=== PATIENT | male | born 1965 | race Caucasian/White ===

== ENCOUNTER 2017-01-20 13:50 | Inpatient (IN) | payer OTHER ==
[2017-01-20] VITALS (7 sets, daily range): BP systolic 132–137; BP diastolic 63–65; PULSE 85–108; RESP 21–35; TEMP 98.4–99.9; O2SAT 92–100
[~2017-01-20 13:50] MED LIST: ALPR0.5T3 PO; AMLO5TAB2 PO; BENA20TA PO; BUSP15TA PO; HYDR-3533 PO; OMEP20TA PO
[2017-01-20] MEDS ORDERED: IOHEXOL 350 MG/ML 10 ML VIAL (for RAD DIAG) IVCONTRAST ONE (13:51)
[2017-01-20] MEDS ORDERED: DIPHTH/TETANUS/ACEL PERTUSSIS (BOOSTER) 0.5 ML VIAL/PFS IM ONE (13:56)
[2017-01-20] MEDS ORDERED: MORPHINE SULFATE 8 MG/ML INJ ONE (14:02)
[2017-01-20 14:10] LABS: AUTOMATED NEUTROPHIL # 7.3 TH/MM3 (1.8-7.7); BASOPHIL % 0.3 % (0.0-2.0); EOSINOPHIL % 0.2 % (0.0-4.0); HEMATOCRIT 30.8 % (39.0-51.0); HEMO FLAGS DIFF FINAL; LYMPH % 29.3 % (9.0-44.0); LYMPHOCYTE # 3.4 TH/MM3 (1.0-4.8); MEAN CELL VOLUME 97.9 FL (80.0-100.0); MEAN CORPUSCULAR HEMOGLOBIN 31.3 PG (27.0-34.0); MONO % 6.9 % (0.0-8.0); NEUT % 63.3 % (16.0-70.0); PLATELET COUNT 332 TH/MM3 (150-450); RED BLOOD COUNT 3.14 MIL/MM3 (4.50-5.90); RED CELL DISTRIBUTION WIDTH 14.7 % (11.6-17.2); WHITE BLOOD COUNT 11.6 TH/MM3 (4.0-11.0)
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
[2017-01-20 14:18] LABS: APTT (PATIENT) 21.9 SEC (24.3-30.1); PROTHROMBIN TIME - PATIENT 11.2 SEC (9.8-11.6)
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
[2017-01-20 14:22] LABS: I-STAT POTASSIUM 3.9 MMOL/L (3.5-4.9)
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
[2017-01-20] MEDS ORDERED: NALOXONE HCL 0.4 MG/ML AMP IV PRN (15:00)
[2017-01-20] MEDS ORDERED: SODIUM CHLORIDE 0.9% FLUSH 10 ML FLUSH IV FLUSH PRN ×2 (15:00→17:15)
[2017-01-20] MEDS ORDERED: PANTOPRAZOLE SOD 40 MG DELAYED RELEASE TAB PO SCH (15:00)
[2017-01-20] MEDS ORDERED: MORPHINE SULFATE 4 MG/ML INJ IV PRN (15:00)
[2017-01-20] MEDS ORDERED: ONDANSETRON HCL 4 MG/2 ML VIAL IV PRN (15:00)
[2017-01-20] MEDS ORDERED: Post-op Orders (for Pharmacy) MISC XX ONE (15:00)
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
[2017-01-20] MEDS ORDERED: LORazepam 2 MG TAB PO PRN (17:15)
[2017-01-20] MEDS ORDERED: FLUMAZENIL 0.5 MG/5 ML VIAL IV PUSH PRN (17:15)
[2017-01-20] MEDS ORDERED: LORazepam 1 MG TAB PO PRN (17:15)
[2017-01-20] MEDS ORDERED: LORazepam 2 MG/ML VIAL IV PUSH PRN ×4 (17:15)
[2017-01-20] MEDS ORDERED: ALPRTAB4 (17:24)
[2017-01-20] MEDS ORDERED: BUSP1TAB PO (17:24)
[2017-01-20] MEDS ORDERED: LATA0.002 EACH EYE (17:24)
[2017-01-20] MEDS ORDERED: AMLO5 PO (17:24)
[2017-01-20] MEDS ORDERED: OMEP20TA PO (17:24)
[2017-01-20] MEDS ORDERED: HYDR-3533 PO (17:24)
[2017-01-20] MEDS ORDERED: LOTE20TA PO (17:24)
[2017-01-20] MEDS: NICOTINE 21 MG/24 HR PATCH T-DERMAL SCH (17:29)
[2017-01-20] MEDS ORDERED: RESP: ALBUTEROL 2.5 MG/3 ML NEB (PRN) NEB (17:30)
[2017-01-20] MEDS: INSULIN ASPART SUPPLEMENTAL SCALE SQ SCH ×2 (17:30→22:40)
[2017-01-20] MEDS ORDERED: GLUCAGON 1 MG/ML VIAL OTHER PRN (17:30)
[2017-01-20] MEDS ORDERED: DEXTROSE 50% IN WATER 50 ML VIAL(D50) IV PRN (17:30)
[2017-01-20] MEDS ORDERED: [UNRECOGNIZED DRUG - OTHER] IV SCH (18:00)
[2017-01-20] MEDS ORDERED: MULTIVITAMIN IV SCH (18:00)
[2017-01-20] MEDS ORDERED: THIAMINE IV SCH (18:00)
[2017-01-20] MEDS ORDERED: FOLIC ACID IV SCH (18:00)
--- NOTE | 2017-01-20 18:21 | EKG ---
Date Performed: 01/20/2017 Time Performed: 16:36:44 PTAGE: 89 years EKG: Sinus tachycardia. Normal ECG except for rate NO PREVIOUS TRACING DOCTOR: Sabas Church Interpretating Date/Time 01/20/2017 18:20:15
[2017-01-20] MEDS: RESP: ALBUTEROL 2.5 MG/IPRATROPIUM 0.5 MG NEB (SCH) NEB (19:43)
[2017-01-20 19:44] LABS: HEMATOCRIT 26.5 % (39.0-51.0); REVIEW FLAG FINAL
[2017-01-20] MEDS: SODIUM CHLORIDE 0.9% FLUSH 10 ML FLUSH IV FLUSH SCH (20:20)
[2017-01-20] MEDS: oxyCODONE/ACETAMINOPHEN 10 MG/325 MG TAB PO PRN (20:20)
[2017-01-20] MEDS ORDERED: SODIUM CHLORIDE 0.9% FLUSH 10 ML FLUSH IV FLUSH SCH (21:00)
[2017-01-21] VITALS (11 sets, daily range): BP systolic 105–136; BP diastolic 58–98; PULSE 88–102; RESP 12–21; TEMP 97.7–98.8; O2SAT 94–100
[2017-01-21] MEDS: SODIUM CHLOR 0.9% 1000 ML INJ 1,000 ML IV SCH ×2 (02:16→17:38)
[2017-01-21] MEDS: oxyCODONE/ACETAMINOPHEN 10 MG/325 MG TAB PO PRN ×4 (03:11→21:05)
[2017-01-21] MEDS: RESP: ALBUTEROL 2.5 MG/IPRATROPIUM 0.5 MG NEB (SCH) NEB ×3 (03:24→16:00)
[2017-01-21] MEDS: INSULIN ASPART SUPPLEMENTAL SCALE SQ SCH ×4 (05:30→23:12)
[2017-01-21 06:17] LABS: AUTOMATED NEUTROPHIL # 5.8 TH/MM3 (1.8-7.7); BASOPHIL % 0.4 % (0.0-2.0); EOSINOPHIL % 0.1 % (0.0-4.0); HEMO FLAGS DIFF FINAL; LYMPH % 17.6 % (9.0-44.0); LYMPHOCYTE # 1.4 TH/MM3 (1.0-4.8); MEAN CELL VOLUME 96.2 FL (80.0-100.0); MEAN CORPUSCULAR HEMOGLOBIN 32.9 PG (27.0-34.0); MEAN CORPUSCULAR HGB CONC 34.2 % (32.0-36.0); MONO % 6.8 % (0.0-8.0); NEUT % 75.1 % (16.0-70.0); PLATELET COUNT 208 TH/MM3 (150-450); RED CELL DISTRIBUTION WIDTH 14.2 % (11.6-17.2); WHITE BLOOD COUNT 7.7 TH/MM3 (4.0-11.0)
[2017-01-21 07:09] LABS: BICARBONATE 22.7 MEQ/L (21.0-32.0); POTASSIUM 3.5 MEQ/L (3.5-5.1)
[2017-01-21 07:12] LABS: INDIRECT BILIRUBIN 0.2 MG/DL (0.0-0.8); TOTAL BILIRUBIN ADULT 0.4 MG/DL (0.2-1.0)
[2017-01-21] MEDS ORDERED: LACTULOSE SYRUP 20 GM/30 ML CUP PO PRN (07:15)
--- NOTE | 2017-01-21 07:36 | RADRPT ---
EXAM DATE/TIME: 01/21/2017 07:13 [place] COMPARISON: CT THORAX W CONTRAST, January 20, 2017, 14:11. CHEST SINGLE AP, January 20, 2017, 13:43. INDICATIONS : Right sided chest pain. MEDICAL HISTORY : None. SURGICAL HISTORY : None. ENCOUNTER: Initial ACUITY: 1 day PAIN SCORE: 5/10 LOCATION: Right chest FINDINGS: Comparison CT demonstrated multiple comminuted nondisplaced right-sided rib fractures. These are not visible on this AP portable view of the chest. There is mild hyperinflation of the left hemithorax. T he lungs are otherwise clear. Heart size is normal. CONCLUSION: The multiple right-sided rib fractures seen on comparison CT are not visible by plain radiograph. Kerri Middleton MD on January 21, 2017 at 7:32 Board Certified Radiologist. This report was verified electronically.
[2017-01-21] MEDS: SODIUM CHLORIDE 0.9% FLUSH 10 ML FLUSH IV FLUSH SCH ×2 (07:45→19:37)
[2017-01-21] MEDS ORDERED: LIDOCAINE HCL 5% PATCH T-DERMAL ONE (08:00)
[2017-01-21] MEDS: METHOCARBAMOL 500 MG TAB PO SCH ×3 (08:01→23:11)
[2017-01-21] MEDS: amLODIPine BESYLATE 5 MG TAB PO SCH (08:01)
[2017-01-21] MEDS: DOCUSATE SODIUM 50 MG/SENNA 8.6 MG TAB PO SCH ×2 (08:01→19:37)
[2017-01-21] MEDS: LISINOPRIL 20 MG TAB PO SCH (08:02)
[2017-01-21] MEDS: REMOVE OLD PATCH T-DERMAL SCH (08:02)
[2017-01-21] MEDS: PANTOPRAZOLE SOD 20 MG DELAYED RELEASE TAB PO SCH (08:02)
[2017-01-21] MEDS: NICOTINE 21 MG/24 HR PATCH T-DERMAL SCH (08:02)
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
[2017-01-21 18:36] LABS: HEMATOCRIT 24.4 % (39.0-51.0); REVIEW FLAG FINAL
[2017-01-21] MEDS ORDERED: diphenhydrAMINE HCL 25 MG CAP PO PRN (20:00)
[2017-01-21] MEDS ORDERED: REMOVE OLD LIDOCAINE PATCH T-DERMAL ONE (20:00)
[2017-01-21] MEDS ORDERED: LATANOPROST 0.005% OPHT SOLN 2.5 ML BTL EACH EYE SCH (21:00)
[2017-01-22] VITALS: BP 135/81; PULSE 85; RESP 20; TEMP 97.9; O2SAT 100
[2017-01-22] MEDS: RESP: ALBUTEROL 2.5 MG/IPRATROPIUM 0.5 MG NEB (SCH) NEB (04:51)
[2017-01-22 04:54] VITALS: O2SAT 98
[2017-01-22] MEDS ORDERED: DIATRIZOATE MEGLUM/DIATRIZOATE SOD 9 ML CUP PO ONE (05:00)
[2017-01-22] MEDS: INSULIN ASPART SUPPLEMENTAL SCALE SQ SCH ×2 (05:30→11:30)
[2017-01-22] MEDS: oxyCODONE/ACETAMINOPHEN 10 MG/325 MG TAB PO PRN ×2 (05:40→10:10)
[2017-01-22 08:00] VITALS: BP 116/81; PULSE 121; RESP 19; TEMP 96.6; O2SAT 95
[2017-01-22 08:23] VITALS: O2SAT 98
[2017-01-22] MEDS: PANTOPRAZOLE SOD 20 MG DELAYED RELEASE TAB PO SCH (09:00)
[2017-01-22] MEDS: REMOVE OLD PATCH T-DERMAL SCH (09:00)
[2017-01-22] MEDS ORDERED: MULTIVITAMIN TAB PO SCH (09:00)
[2017-01-22] MEDS ORDERED: THIAMINE HCL 100 MG TAB PO SCH (09:00)
[2017-01-22] MEDS: SODIUM CHLORIDE 0.9% FLUSH 10 ML FLUSH IV FLUSH SCH (09:00)
[2017-01-22] MEDS: DOCUSATE SODIUM 50 MG/SENNA 8.6 MG TAB PO SCH (10:03)
[2017-01-22] MEDS: LISINOPRIL 20 MG TAB PO SCH (10:04)
[2017-01-22] MEDS: amLODIPine BESYLATE 5 MG TAB PO SCH (10:04)
[2017-01-22] MEDS: NICOTINE 21 MG/24 HR PATCH T-DERMAL SCH (10:05)
[2017-01-22] MEDS ORDERED: OXYC1TAB36 PO (10:06)
[2017-01-22] MEDS: METHOCARBAMOL 500 MG TAB PO SCH (10:07)
[2017-01-22] MEDS ORDERED: IOHEXOL 350 MG/ML 10 ML VIAL (for RAD DIAG) IVCONTRAST ONE (10:56)
[2017-01-22] MEDS ORDERED: LACTULOSE SYRUP 20 GM/30 ML CUP PO ONE (11:00)
[2017-01-22 12:00] VITALS: BP 144/82; PULSE 115; RESP 21; TEMP 97.3; O2SAT 99
[2017-01-22] MEDS: SODIUM CHLOR 0.9% 1000 ML INJ 1,000 ML IV SCH (12:35)
[2017-01-22] MEDS ORDERED: SENN1TAB PO (12:43)
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
== END 2017-01-22 13:54 | disposition home or self-care (01) | DRG 964 ==
LOC: NEPI 13:50 → EDBD 14:49 → MERGE 14:49 → NEDA 14:49 → N03A 14:56 → N07B 01-21 15:39
PROVIDERS: ADMIT Surgery; ATTEND Surgery
DX: S36.030A Superficial (capsular) laceration of spleen, initial encounter (principal); S27.321A Contusion of lung, unilateral, initial encounter; E87.1 Hypo-osmolality and hyponatremia; S22.41XA Multiple fractures of ribs, right side, initial encounter for closed fracture; S36.892A Contusion of other intra-abdominal organs, initial encounter; D62 Acute posthemorrhagic anemia; S06.0X1A Concussion with loss of consciousness of 30 minutes or less, initial encounter; F17.210 Nicotine dependence, cigarettes, uncomplicated; J44.9 Chronic obstructive pulmonary disease, unspecified; F10.229 Alcohol dependence with intoxication, unspecified; Y90.3 Blood alcohol level of 60-79 mg/100 ml; F12.90 Cannabis use, unspecified, uncomplicated; M54.16 Radiculopathy, lumbar region; I10 Essential (primary) hypertension; K21.9 Gastro-esophageal reflux disease without esophagitis; S30.1XXA Contusion of abdominal wall, initial encounter; R73.9 Hyperglycemia, unspecified; F41.9 Anxiety disorder, unspecified; V47.5XXA Car driver injured in collision with fixed or stationary object in traffic accident, initial encounter; Y92.410 Unspecified street and highway as the place of occurrence of the external cause
CPT/HCPCS: 70450; 71010; 71260; 72125; 72170; 74177; 80048; 80076; 80307; 82435; 82565; 82947; 82948; 84132; 84295; 84520; 85014; 85018; 85025; 85610; 85730; 86850; 86900; 86901; 87641; 90471; 90715; 93005; 93880; 94150; 94640; 94664; 96374; 99291; G0390; J2270; J3411; J7030; J7040; Q9963; Q9967

== ENCOUNTER 2017-07-21 13:03 | Emergency (ER) | payer MEDICARE ==
[~2017-07-21] VITALS: Ht 170.2 cm; Wt 73.0 kg
[~2017-07-21 13:03] MED LIST changes: +ALPRTAB4; +AMLO5 PO; +BUSP1TAB PO; +LATA0.002 EACH EYE; +LOTE20TA PO; -OMEP20TA PO; +OMEP20TA93 PO; +OXYC1TAB36 PO; +SENN1TAB PO
[2017-07-21 13:07] VITALS: BP 85/66; PULSE 111; RESP 20; TEMP 98.2; O2SAT 95
[2017-07-21] MEDS ORDERED: ECHI1CAP2 PO (13:24)
[2017-07-21] MEDS ORDERED: BENA25TA6 PO (13:24)
[2017-07-21] MEDS ORDERED: HYDR-3516 PO (13:24)
[2017-07-21 13:27] VITALS: BP 132/74; PULSE 99; RESP 20; O2SAT 98
[2017-07-21] MEDS ORDERED: SODIUM CHLOR 0.9% 1000 ML INJ 1,000 ML IV SCH (13:49)
[2017-07-21] MEDS ORDERED: KETOROLAC TROMETHAMINE 30 MG/ML (IVP) VIAL IVP ONE (14:00)
[2017-07-21] MEDS ORDERED: SODIUM CHLORIDE 0.9% FLUSH 10 ML FLUSH IVF PRN (14:00)
[2017-07-21] MEDS ORDERED: ONDANSETRON HCL 4 MG/2 ML VIAL IV PUSH ONE (14:00)
[2017-07-21] MEDS ORDERED: PANTOPRAZOLE SODIUM 40 MG VIAL IVP ONE (14:00)
[2017-07-21] MEDS ORDERED: FAMOTIDINE 20 MG/2 ML VIAL IV PUSH ONE (14:00)
[2017-07-21 14:08] VITALS: BP 124/76; PULSE 97; RESP 20; TEMP 98.1; O2SAT 96; O2SAT 98
--- NOTE | 2017-07-21 14:10 | PD ---
HPI Chief Complaint: GI Complaint Time Seen by Provider: 13:49 Travel History International Travel<30 days: No Contact w/Intl Traveler<30days: No Traveled to known affect area: No History of Present Illness HPI Patient presents with complaints of near syncope. States he went to stand and felt lightheaded. States he has not eaten for 4 days. Reports decreased fluid intake. States he hasn't eaten because he didn't feel like it rather than any abdominal pain. He is a smoker. Reports uncontrolled reflux despite omeprazole 20 mg per day. Denies any chest pain shortness of breath urinary or bowel symptoms. Denies any loose stools or fever. Presented via [facility]. PFSH Past Medical History Hx Anticoagulant Therapy: Yes (BABY ASA) Arthritis: Yes Autoimmune Disease: No Anxiety: Yes Depression: Yes Heart Rhythm Problems: No Cancer: No Cardiovascular Problems: Yes High Cholesterol: No Chest Pain: No Congestive Heart Failure: No Cerebrovascular Accident: No Diminished Hearing: No Endocrine: No Headaches: No Hypertension: Yes Immune Disorder: No Musculoskeletal: Yes Neurologic: No Psychiatric: Yes Immunizations Current: Yes Migraines: No Seizures: No Tetanus Vaccination: < 5 Years Influenza Vaccination: Yes Past Surgical History Abdominal Surgery: No Cardiac Surgery: No Ear Surgery: No Endocrine Surgery: No Eye Surgery: No Genitourinary Surgery: No Gynecologic Surgery: No Oral Surgery: No Thoracic Surgery: No Other Surgery: Yes (Cyst Removed from head ) Social History Alcohol Use: Yes (6-8 BEER) Tobacco Use: Yes (2 PKS) Substance Use: Yes (POT) Allergies-Medications (Allergen,Severity, Reaction): Coded Allergies: codeine (Unverified Allergy, Intermediate, NAUSEA, 07/21/17) Reported Meds & Prescriptions Reported Meds & Active Scripts Active Reported Benadryl Allergy (Diphenhydramine HCl) 25 Mg Tablet 1 Tab PO DIRECTED Echinacea 380 Mg Cap 760 Mg PO DAILY Hydrocodone-Acetaminophen 5-325 mg Tab 1 Tab PO BID PRN Latanoprost Opth Drops (Latanoprost) 0.005% Drops 1 Drop EACH EYE HS Refrigerate until opened. Omeprazole 20 Mg Tab 20 Mg PO DAILY Alprazolam 0.5 Mg Tab 0.5 Mg PO DAILY PRN Amlodipine (Amlodipine Besylate) 5 Mg Tab 5 Mg PO DAILY Benazepril (Benazepril HCl) 20 Mg Tab 20 Mg PO DAILY Buspirone (Buspirone HCl) 15 Mg Tab 15 Mg PO BID Review of Systems General / Constitutional: No: Fever Eyes: No: Visual changes HENT: Positive: Lightheadedness, No: Headaches Cardiovascular: No: Chest Pain or Discomfort Respiratory: No: Shortness of Breath Gastrointestinal: Positive: Nausea, Vomiting, Indigestion, Loss of Appetite, No : Abdominal Pain Genitourinary: No: Dysuria Musculoskeletal: No: Pain Skin: No Rash Neurologic: No: Weakness Psychiatric: No: Depression Endocrine: No: Polydipsia Hematologic/Lymphatic: No: Easy Bruising Physical Exam Narrative GENERAL: Well-nourished, well-developed patient. SKIN: Focused skin assessment warm/dry. HEAD: Normocephalic. EYES: No scleral icterus. No injection or drainage. NECK: Supple, trachea midline. No JVD or lymphadenopathy. CARDIOVASCULAR: Regular rate and rhythm without murmurs, gallops, or rubs. RESPIRATORY: Breath sounds equal bilaterally. No accessory muscle use. GASTROINTESTINAL: Abdomen soft, non-tender, nondistended. MUSCULOSKELETAL: No cyanosis, or edema. BACK: Nontender without obvious deformity. No CVA tenderness. Data Data Last Documented VS Vital Signs Date Time Temp Pulse Resp B/P (MAP) Pulse Ox O2 Delivery O2 Flow Rate FiO2 07/21/17 15:40 100 16 110/68 (82) 106 16 113/72 (86) 115 18 113/69 (84) 07/21/17 14:43 98 Room Air 07/21/17 14:08 98.1 Orders Orders Pantoprazole Inj (Protonix Inj) (07/21/17 14:00) Sodium Chlor 0.9% 1000 Ml Inj (Ns 1000 M (07/21/17 13:49) Famotidine Inj (Pepcid Inj) (07/21/17 14:00) Ketorolac Inj (Toradol Inj) (07/21/17 14:00) Complete Blood Count With Diff (07/21/17 13:49) Comprehensive Metabolic Panel (07/21/17 13:49) Urinalysis - C+S If Indicated (07/21/17 13:49) NPO (07/21/17 13:49) Ondansetron Inj (Zofran Inj) (07/21/17 14:00) Ct Brain W/O Iv Contrast(Rout) (07/21/17 13:49) Ecg Monitoring (07/21/17 13:49) Iv Access Insert/Monitor (07/21/17 13:49) Oximetry (07/21/17 13:49) Sodium Chloride 0.9% Flush (Ns Flush) (07/21/17 14:00) Alcohol (Ethanol) (07/21/17 14:17) Electrocardiogram (07/21/17 13:09) Labs Laboratory Tests Test 07/21/17 13:15 07/21/17 15:15 White Blood Count 9.4 TH/MM3 Red Blood Count 3.91 MIL/MM3 Hemoglobin 11.5 GM/DL Hematocrit 35.1 % Mean Corpuscular Volume 89.7 FL Mean Corpuscular Hemoglobin 29.4 PG Mean Corpuscular Hemoglobin Concent 32.8 % Red Cell Distribution Width 16.9 % Platelet Count 366 TH/MM3 Mean Platelet Volume 7.1 FL Neutrophils (%) (Auto) 68.4 % Lymphocytes (%) (Auto) 22.4 % Monocytes (%) (Auto) 7.5 % Eosinophils (%) (Auto) 1.1 % Basophils (%) (Auto) 0.6 % Neutrophils # (Auto) 6.4 TH/MM3 Lymphocytes # (Auto) 2.1 TH/MM3 Monocytes # (Auto) 0.7 TH/MM3 Eosinophils # (Auto) 0.1 TH/MM3 Basophils # (Auto) 0.1 TH/MM3 CBC Comment DIFF FINAL Differential Comment Blood Urea Nitrogen 16 MG/DL Creatinine 2.90 MG/DL Random Glucose 101 MG/DL Total Protein 9.0 GM/DL Albumin 3.6 GM/DL Calcium Level 10.3 MG/DL Alkaline Phosphatase 71 U/L Aspartate Amino Transf (AST/SGOT) 19 U/L Alanine Aminotransferase (ALT/SGPT) 18 U/L Total Bilirubin 0.6 MG/DL Sodium Level 133 MEQ/L Potassium Level 3.9 MEQ/L Chloride Level 102 MEQ/L Carbon Dioxide Level 14.5 MEQ/L Anion Gap 17 MEQ/L Estimat Glomerular Filtration Rate 23 ML/MIN Ethyl Alcohol Level LESS THAN 3 MG/DL Urine Collection Type CLEAN CATCH Urine Color YELLOW Urine Turbidity CLEAR Urine pH 5.0 Urine Specific [place] 1.023 Urine Protein 100 mg/dL Urine Glucose (UA) NEG mg/dL Urine Ketones TRACE mg/dL Urine Occult Blood TRACE Urine Nitrite NEG Urine Bilirubin NEG Urine Leukocyte Esterase NEG Urine RBC 0-3 /hpf Urine WBC 0-2 /hpf Urine Squamous Epithelial Cells 6-8 /hpf Urine Amorphous Sediment FEW Urine Hyaline Casts 20-24 /lpf Urine Oval Fat Bodies Microscopic Urinalysis Comment CULT NOT INDICATED Urine Collection Time 15:15 [facility] Medical Decision Making Medical Screen Exam Complete: Yes Emergency Medical Condition: Yes Differential Diagnosis GERD, near syncope, dehydration, orthostatic hypotension Narrative Course Assessment and plan discussed with patient and significant other bedside. EKG reveals sinus tachycardia rate 112. Mild anemia noted. Acute renal insufficiency noted. Mild hyponatremia noted. Orthostatics within normal limits after 2 L of normal saline. Vomiting controlled. Physician Communication Physician Communication Spoke with Dr. Haynes who is expecting follow-up Sunday Diagnosis Primary Impression: Acute renal insufficiency Additional Impressions: Dehydration Dizziness Patient Instructions: General Instructions Additional Instructions: Recommends cessation of alcohol. Hold Benazepril. Encourage good fluid and food intake. Encouraged a bland high-fiber brat diet. Encouraged to increase omeprazole to twice a day. Encouraged to add Zantac 150 mg twice a day. Encouraged smoking cessation. Follow-up with PCP. Return to emergency room with any onset of new symptoms. Med/Other Pt SpecificInfo: Prescription(s) given, No Meds Exist/No RX given Scripts Ondansetron (Zofran) 4 Mg Tab 4 MG PO Q6HR Y for NAUSEA OR VOMITING, #15 TAB 0 Refills Prov: Ivan Linares MD 07/21/17 Disposition: 01 DISCHARGE HOME Condition: Good Ivan Linares MD Jul 21, 2017 14:10
[2017-07-21 14:23] LABS: AUTOMATED NEUTROPHIL # 6.4 TH/MM3 (1.8-7.7); BASOPHIL # 0.1 TH/MM3 (0-0.2); BASOPHIL % 0.6 % (0.0-2.0); EOSINOPHIL # 0.1 TH/MM3 (0-0.4); EOSINOPHIL % 1.1 % (0.0-4.0); HEMATOCRIT 35.1 % (39.0-51.0); HEMOGLOBIN 11.5 GM/DL (13.0-17.0); LYMPH % 22.4 % (9.0-44.0); LYMPHOCYTE # 2.1 TH/MM3 (1.0-4.8); MEAN CELL VOLUME 89.7 FL (80.0-100.0); MEAN CORPUSCULAR HEMOGLOBIN 29.4 PG (27.0-34.0); MEAN CORPUSCULAR HGB CONC 32.8 % (32.0-36.0); MEAN PLATELET VOLUME 7.1 FL (7.0-11.0); MONO % 7.5 % (0.0-8.0); MONOCYTE # 0.7 TH/MM3 (0-0.9); NEUT % 68.4 % (16.0-70.0); PLATELET COUNT 366 TH/MM3 (150-450); RED BLOOD COUNT 3.91 MIL/MM3 (4.50-5.90); RED CELL DISTRIBUTION WIDTH 16.9 % (11.6-17.2); WHITE BLOOD COUNT 9.4 TH/MM3 (4.0-11.0)
[2017-07-21 14:30] LABS: CHLORIDE 102 MEQ/L (98-107); SODIUM (NA) 133 MEQ/L (136-145)
[2017-07-21 14:33] LABS: CALCIUM 10.3 MG/DL (8.5-10.1)
[2017-07-21 14:34] LABS: ALBUMIN 3.6 GM/DL (3.4-5.0); BICARBONATE 14.5 MEQ/L (21.0-32.0); BLOOD UREA NITROGEN 16 MG/DL (7-18); GLUCOSE,RANDOM 101 MG/DL (74-106)
[2017-07-21 14:37] LABS: ALT (GPT) 18 U/L (12-78); AST (GOT) 19 U/L (15-37); GLOMERULAR FILTRATION RATE 23 ML/MIN (>89)
[2017-07-21 14:38] LABS: TOTAL BILIRUBIN ADULT 0.6 MG/DL (0.2-1.0)
[2017-07-21 14:40] LABS: ALKALINE PHOSPHATASE 71 U/L (45-117)
[2017-07-21 14:43] VITALS: BP 132/76; PULSE 100; RESP 20; O2SAT 98
--- NOTE | 2017-07-21 15:05 | RADRPT ---
EXAM DATE/TIME: 07/21/2017 14:23 [facility] COMPARISON: CT BRAIN W/O CONTRAST, January 20, 2017, 14:04. INDICATIONS : Dizzy, weakness. Neck pain. RADIATION DOSE: 59.28 CTDIvol (mGy) MEDICAL HISTORY : Hypertension. Gastroesophageal reflux disease. Marijuana, alcohol daily SURGICAL HISTORY : None. ENCOUNTER: Initial ACUITY: 3 days PAIN SCALE: 9/10 LOCATION: cranial TECHNIQUE: Multiple contiguous axial images were obtained of the head. Using automated exposure control and adj ustment of the mA and/or kV according to patient size, radiation dose was kept as low as reasonably a chievable to obtain optimal diagnostic quality images. DICOM format image data is available electro nically for review and comparison. FINDINGS: CEREBRUM: The ventricles are normal for age. Stable bilateral cortical atrophy. No evidence of midline shift, mass lesion, hemorrhage or acute infarction. No extra-axial fluid collections are seen. POSTERIOR FOSSA: The cerebellum and brainstem are intact. The 4th ventricle is midline. The cerebellopontine angle i s unremarkable. EXTRACRANIAL: The visualized portion of the orbits is intact. Stable chronic sinus disease in the maxillary sinuses . SKULL: The calvaria is intact. No evidence of skull fracture. CONCLUSION: Stable CT can of the brain compared to the prior exam from 2017. No acute pathology. Colt Dumont MD on July 21, 2017 at 15:02 Board Certified Radiologist. This report was verified electronically.
[2017-07-21 15:23] LABS: BLOOD, URINE TRACE (NEG); GLUCOSE,URINE NEG (NEG); KETONE, URINE TRACE mg/dL (NEG); NITRITE,URINE NEG (NEG); URINE LEUKOCYTE ESTERASE NEG (NEG)
[2017-07-21 15:28] LABS: BILIRUBIN, URINE NEG (NEG); URINE COLOR YELLOW (YELLW/STRAW)
[2017-07-21 15:29] LABS: RBC, URINE 0-3 /hpf (0-3); WBC, URINE 0-2 /hpf (0-5)
[2017-07-21 15:30] LABS: AMORPHOUS SEDIMENT, URINE FEW
[2017-07-21 15:40] VITALS: BP_SYST 110; BP_SYST 113; BP_DIAS 68; BP_DIAS 69; BP_DIAS 72; RESP 16; RESP 18
[2017-07-21] MEDS ORDERED: ZOFR4TAB PO (15:54)
--- NOTE | 2017-07-21 17:07 | EKG ---
Date Performed: 07/21/2017 Time Performed: 13:09:23 PTAGE: 52 years EKG: SINUS TACHYCARDIA ABNORMAL RHYTHM ECG PREVIOUS TRACING : 01/20/2017 16.36 No significant change from previous tracing noted. DOCTOR: Memo Webber Interpretating Date/Time 07/21/2017 17:06:16
== END 2017-07-21 16:35 | disposition home or self-care (01) ==
LOC: PHED 13:03
DX: N28.9 Disorder of kidney and ureter, unspecified (principal); E86.0 Dehydration; R00.0 Tachycardia, unspecified; I10 Essential (primary) hypertension; F32.9 Major depressive disorder, single episode, unspecified; F17.210 Nicotine dependence, cigarettes, uncomplicated; Z88.5 Allergy status to narcotic agent; Z79.899 Other long term (current) drug therapy
CPT/HCPCS: 70450; 80053; 80307; 81001; 85025; 93005; 96361; 96374; 96375; 99285; C9113; J1885; J2405; J7030